=== PATIENT | male | born 1995 | race Caucasian/White ===

== ENCOUNTER 2019-08-19 10:50 | Emergency (ER) | payer OTHER ==
[~2019-08-19] VITALS: Ht 172.7 cm; Wt 77.1 kg
--- NOTE | 2019-08-19 10:56 | NUR ---
PT BIB SELF C/O REDNESS AND SWELLING TO R FA SINCE YESTERDAY, PT IS AAOX4, NOT IN RESPIRATORY DISTRESS, HOOKED TO MONITOR, KEPT RESTED AND COMFORTABLE, WILL CONTINUE TO MONITOR.
--- NOTE | 2019-08-19 11:12 | NUR ---
AT BEDSIDE FOR EVAL.
--- NOTE | 2019-08-19 11:35 | NUR ---
IV LINE ESTABLISHED, BLOOD DRAWN AND SENT TO LAB.
[2019-08-19 11:36] LABS: BASOPHILS % (AUTO) 0.4 % (0.0-2.0); EOSINOPHILS % (AUTO) 0.5 % (0.0-6.0); HEMATOCRIT 35 % (39-51); LYMPHOCYTES # (AUTO) 0.8 /CMM (0.8-4.8); LYMPHOCYTES % (AUTO) 10.5 % (20.0-44.0); MEAN CORPUSCULAR HGB CONC 34 g/dl (31.0-36.0); MEAN CORPUSCULAR VOLUME 90 fL (80-96); MONOCYTES # (AUTO) 0.6 /CMM (0.1-1.30); MONOCYTES % (AUTO) 8.2 % (2.0-12.0); NEUTROPHILS # (AUTO) 5.8 /CMM (1.8-8.9); NEUTROPHILS % (AUTO) 80.4 % (43.0-81.0); PLATELET COUNT (AUTO) 218 /CMM (150-450); RED BLOOD CELL COUNT(AUTO) 3.94 MIL/uL (4.5-6.0); WHITE BLOOD COUNT (AUTO) 7.2 K/uL (4.3-11.0)
--- NOTE | 2019-08-19 11:38 | NUR ---
CALLED PHARMACY FOR PT ANTIBIOTIC.
[2019-08-19 11:43] LABS: CALCIUM, SERUM 8.7 mg/dL (8.5-10.1); CREATININE 0.9 mg/dL (0.6-1.3); POTASSIUM 4.6 mmol/L (3.5-5.1)
[2019-08-19] MEDS: VANCOMYCIN HCL 1 GM in IV D5W 260 ML IV ONE (11:47)
[2019-08-19 13:54] VITALS: BP 122/77
--- NOTE | 2019-08-19 13:56 | NUR ---
Patient discharged to home in stable condition. Written and verbal after care instructions given. Patient verbalizes understanding of instruction. IV removed. Catheter intact and site benign. Pressure and 4x4 applied to site. No bleeding noted.
== END 2019-08-19 13:57 | disposition home or self-care (01) ==
LOC: ER 10:58
DX: L03.113 Cellulitis of right upper limb (principal); F19.10 Other psychoactive substance abuse, uncomplicated; Z88.1 Allergy status to other antibiotic agents
CPT/HCPCS: 36415; 76536; 80048; 85025; 87040 ×2; 96365; 96366; 99284; J7060

== ENCOUNTER 2019-08-22 14:44 | Inpatient (IN) | payer OTHER ==
[~2019-08-22] VITALS: Ht 172.7 cm; Wt 76.8 kg
--- NOTE | 2019-08-22 15:00 | NUR ---
patient came in to the er c/o r arm pain, re-check cellulitis. On room air, breathing evenly and unlabored. connected to the monitor and pulse ox. Kept comfortable, will continue to monitor accordingly.
[2019-08-22] MEDS ORDERED: VANCOMYCIN 1 GM in IV D5W 250 ML IV ONE (15:30)
[2019-08-22] MEDS ORDERED: AZTREONAM 1 G in IV NS 0.9% 100 ML IV ONE (15:30)
[2019-08-22] MEDS ORDERED: CLINDAMYCIN 900 MG in IV D5W 50 ML IV ONE (15:30)
[2019-08-22] MEDS ORDERED: HYDROCODONE/APAP 5/325MG 1 EACH TABLET PO ONE (15:30)
[2019-08-22] MEDS ORDERED: IV NS 0.9% 1,000 ML BAG IV ONE (15:30)
[2019-08-22] MEDS ORDERED: HYDROCODONE/APAP 5/325MG 1 EACH TABLET ONE (15:41)
[2019-08-22 15:45] LABS: BASOPHILS % (AUTO) 0.5 % (0.0-2.0); EOSINOPHILS % (AUTO) 1.6 % (0.0-6.0); HEMATOCRIT 36 % (39-51); HEMOGLOBIN 12.1 g/dL (13.5-17.5); LYMPHOCYTES # (AUTO) 1.2 /CMM (0.8-4.8); LYMPHOCYTES % (AUTO) 13.5 % (20.0-44.0); MEAN CORPUSCULAR HGB CONC 34 g/dl (31.0-36.0); MEAN CORPUSCULAR VOLUME 90 fL (80-96); MONOCYTES # (AUTO) 0.7 /CMM (0.1-1.30); MONOCYTES % (AUTO) 7.7 % (2.0-12.0); NEUTROPHILS # (AUTO) 6.8 /CMM (1.8-8.9); NEUTROPHILS % (AUTO) 76.7 % (43.0-81.0); PLATELET COUNT (AUTO) 322 /CMM (150-450); WHITE BLOOD COUNT (AUTO) 8.8 K/uL (4.3-11.0)
[2019-08-22 15:55] LABS: CALCIUM, SERUM 9.3 mg/dL (8.5-10.1); CARBON DIOXIDE 27 mmol/L (21-32); CHLORIDE 99 mmol/L (98-107); GLUCOSE 86 mg/dL (74-106); POTASSIUM 4.5 mmol/L (3.5-5.1); SODIUM SERUM 135 mmol/L (136-145); UREA NITROGEN, BLOOD 14 mg/dL (7-18)
[2019-08-22] MEDS ORDERED: CEPH500C2 PO (16:05)
[2019-08-22] MEDS ORDERED: SULF1TAB48 PO (16:05)
[2019-08-22 16:10] LABS: ALANINE AMINOTRANSFERASE 9 U/L (12-78); ALBUMIN 2.8 g/dL (3.4-5.0); ALKALINE PHOSPHATASE 72 U/L (46-116); ASPARTATE AMINOTRANSFERASE 14 U/L (15-37); BILIRUBIN,DIRECT 0.1 mg/dL (0.0-0.2); BILIRUBIN,TOTAL 0.3 mg/dL (0.2-1.0); TOTAL PROTEIN, SERUM 8.6 g/dL (6.4-8.2)
--- NOTE | 2019-08-22 16:43 | NUR ---
[id number] [facility]
[2019-08-22] MEDS ORDERED: MORPHINE SULFATE INJ 2 MG/ML DISP.SYRIN IV ONE (17:00)
[2019-08-22] MEDS ORDERED: MORPHINE SULFATE INJ 4 MG/ML DISP.SYRIN ONE (17:04)
[2019-08-22] MEDS ORDERED: MORPHINE SULFATE INJ 2 MG/ML DISP.SYRIN ONE (17:04)
--- NOTE | 2019-08-22 18:17 | NUR ---
wheeled patient via wheelchair in no distress. RN at bedside to assume care.
--- NOTE | 2019-08-22 18:20 | NUR ---
M/S ELECTRONIC PAGINATION SYSTEM OPERATOR NOTES RECEIVED PT VIA W/C FROM ER, A/OX4, RESPONSIVE TO ALL STIMULI, TURKMEN SPEAKING ONLY. RESPIRATION EVEN AND NON LABORED WITH NO ACUTE RESPIRATORY DISTRESS, LUNGS CLEARED BILATERALLY. ABDOMEN SOFT AND DISTENDED WITH ACTIVE BOWEL SOUNDS. SKIN WARM TO TOUCH AND DRY. PAIN AT 6/10 ON RIGHT ARM, PAGED HOSPITALIST MARILEE YUSUF REGARDING THE COMPLAIN. WILL SEE THE PATIENT. RIGHT AC #18 PATENT IN FLUSHING, NO S/SX ON INFILTRATION. CALL LIGHT WITHIN REACH, BED IN LOW LOCKED SIDE RAILS X2 UP. ALL CONCERNS ATTENDED AT THIS TIME. WILL CONTINUE TO EVALUATE CARE.
[2019-08-22] MEDS ORDERED: CLINDAMYCIN IV RTU IN D5W 900 MG/50 ML PIGGYBACK IV SCH (18:30)
--- NOTE | 2019-08-22 18:50 | NUR ---
M/S RN NOTES PT SEEN AND EVALUATED BY CARMEN HUNT.
[2019-08-22] MEDS ORDERED: ACETAMINOPHEN 325 MG TABLET PO PRN (19:00)
[2019-08-22] MEDS ORDERED: Z GUARD REMEDY 2 OZ OINT TP PRN (19:00)
[2019-08-22] MEDS ORDERED: ZOLPIDEM TARTRATE 5 MG TABLET PO PRN (19:00)
[2019-08-22] MEDS ORDERED: MAGNESIUM HYDROXIDE 30 ML UDC PO PRN (19:00)
[2019-08-22] MEDS ORDERED: ONDANSETRON HCL/PF 4 MG/2 ML VIAL IVP PRN (19:00)
[2019-08-22] MEDS ORDERED: MORPHINE SULFATE INJ 2 MG/ML DISP.SYRIN IV PRN (19:00)
--- NOTE | 2019-08-22 19:15 | NUR ---
RN PM OPENING NOTE BEDSIDE REPORT FROM LAURA GARCIA. ALERT AND ORIENTED X4. RESPIRATION EVEN AND NON LABORED WITH NO APPARENT RESPIRATORY DISTRESS, LUNGS CLEAR BILATERALLY. SKIN WARM TO TOUCH AND DRY. C/O PAIN AT 7/10 ON RIGHT ARM, RIGHT AC #18 PATENT FLUSHIED, NO S/SX ON INFILTRATION HEPLOCKED. CALL LIGHT WITHIN REACH, BED IN LOW LOCKED SIDE RAILS X2 UP. ADMISSION ASSESSMENT TO BE PERFORMED. PATIENT VERBALIZED UNDERSTANDING TO CALL FOR ASSISTANCE NEEDED
--- NOTE | 2019-08-22 19:21 | NUR ---
M/S WINE MANAGER NOTES ENDORSED PT CARE TO NEXT NURSE. PT IN STABLE CONDITION AT THIS TIME. CALL LIGHT WITHIN REACH. CONCERNS ATTENDED.
[2019-08-22 20:00] VITALS: BP 125/61
[2019-08-22] MEDS: NICOTINE PATCH (14MG) 14 MG PATCH.TD24 TD SCH (21:14)
[2019-08-22] MEDS: CLINDAMYCIN 900 MG in IV D5W 50 ML IV SCH (23:07)
[2019-08-22] MEDS: KETOROLAC TROMETHAMINE INJ 30 MG/ML VIAL IM PRN (23:08)
[2019-08-23] MEDS: KETOROLAC TROMETHAMINE INJ 30 MG/ML VIAL IM PRN ×2 (06:24→18:28)
[2019-08-23 06:50] LABS: BASOPHILS % (AUTO) 0.4 % (0.0-2.0); EOSINOPHILS % (AUTO) 2.7 % (0.0-6.0); HEMATOCRIT 37 % (39-51); HEMOGLOBIN 12.4 g/dL (13.5-17.5); LYMPHOCYTES # (AUTO) 1.2 /CMM (0.8-4.8); LYMPHOCYTES % (AUTO) 18.8 % (20.0-44.0); MEAN CORPUSCULAR HGB CONC 34 g/dl (31.0-36.0); MEAN CORPUSCULAR VOLUME 90 fL (80-96); MONOCYTES # (AUTO) 0.5 /CMM (0.1-1.30); MONOCYTES % (AUTO) 8.4 % (2.0-12.0); NEUTROPHILS # (AUTO) 4.5 /CMM (1.8-8.9); NEUTROPHILS % (AUTO) 69.7 % (43.0-81.0); PLATELET COUNT (AUTO) 267 /CMM (150-450); RED BLOOD CELL COUNT(AUTO) 4.09 MIL/uL (4.5-6.0); WHITE BLOOD COUNT (AUTO) 6.5 K/uL (4.3-11.0)
[2019-08-23 07:10] LABS: MAGNESIUM 1.9 mg/dL (1.8-2.4); PHOSPHORUS 4.2 mg/dL (2.5-4.9); POTASSIUM 4.3 mmol/L (3.5-5.1)
--- NOTE | 2019-08-23 07:36 | NUR ---
MS RN OPENING NOTES RECEIVED PATIENT ASLEEP IN BED, EASILY AROUSABLE. A/O X4, NO C/O PAIN AT THIS TIME. ON ROOM AIR, BREATHING EVEN AND UNLABORED. IV ACCESS ON LAC G#18 INTACT AND PATENT, IVF OF NS @ 75ML/HR INFUSING, NO S/S OF INFILTRATIONS NOTED. SAFETY MEASURES IN PLACE: BED IN LOWEST LOCKED POSITION WITH SR UP X2. CALL LIGHT WITHIN REACH. WILL CONTINUE TO MONITOR.
--- NOTE | 2019-08-23 07:40 | NUR ---
MS RN CLOSING NOTE PT IN BED, EASILY AROUSABLE TO VOICE. A/O X4, RECENTLY MEDICATED WITH TORADOL FOR PAIN RELIEF. REPORTING PAIN AT 2/10 TO RIGHT FOREARM. FOREARM BEING ELEVATED ON 2 PILLOWS. IV ACCESS ON LAC G#18 INTACT AND PATENT, IVF OF NS @ 75ML/HR INFUSING, NO S/S OF INFILTRATIONS NOTED. SAFETY MEASURES IN PLACE: BED IN LOWEST LOCKED POSITION WITH SR UP X2. CALL LIGHT WITHIN REACH. PATIETN AMBULATES WITH A STEADY GAIT.
--- NOTE | 2019-08-23 07:41 | NUR ---
WOUND CARE CONSULT: PT PRESENTS WITH RT ARM SWELLING AND REDNESS, PRESENT ON ADMISSION. ARM IS ELEVATED ON PILLOW. WILL SEE PRN.
[2019-08-23] MEDS: CLINDAMYCIN 900 MG in IV D5W 50 ML IV SCH ×2 (08:04→15:47)
[2019-08-23] MEDS: NICOTINE PATCH (14MG) 14 MG PATCH.TD24 TD SCH (09:08)
[2019-08-23] MEDS: HYDROCODONE/APAP 5/325MG 1 EACH TABLET PO PRN ×2 (11:34→18:28)
--- NOTE | 2019-08-23 11:35 | NUR ---
RN NOTES PT C/O BURNING THROBBING PAIN ON RIGHT LOWER ARM WITH SCALE OF 7/10. PRN NORCO 5/325MG PO GIVEN AT 1134
[2019-08-23] MEDS: IV NS 0.9% 1,000 ML IV PRN (11:39)
--- NOTE | 2019-08-23 13:02 | NUR ---
RN NOTES PT SEEN AND EVALUATED BY PARAMJIT HUNT AND INFORMED HER THAT PT HAS SUPERFICIAL CLOT FORMATION W/IN RIGHT CEPHALIC VEIN AND THERE'S NO EVIDENCE OF DVT. PARAMJIT HUNT WITH ORDER TO KEEP RIGHT ARM ELEVATED WITH PILLOW/S AND APPLY WARM COMPRESS. WILL CARRY OUT ORDER AND CONTINUE TO MONITOR PT.
[2019-08-23] MEDS: MORPHINE SULFATE INJ 2 MG/ML DISP.SYRIN IV PRN ×2 (15:44→20:23)
--- NOTE | 2019-08-23 15:50 | NUR ---
RN NOTES PT COMPLAINED OF RIGHT ARM PAIN, PT REFUSED TO HAVE NORCO OR TORADOL, INFORMED PARAMJIT HUNT WITH ORDER TO GIVE MORPHINE 2MG IV Q4HRS PRN. MORPHINE 2MG IVP ADMINISTERED AT 1543. WILL CONTINUE TO MONITOR AND REASSESS PT.
[2019-08-23 16:15] VITALS: BP 126/68
--- NOTE | 2019-08-23 18:49 | NUR ---
MS RN CLOSING NOTES PATIENT IN BED AWAKE AND WATCHING TV AT THIS TIME. A/O X4. ABLE TO MAKE NEEDS KNOWN. REMAINS WITH REDNESS AND SWELLING ON RIGHT ARM, KEEP ELEVATED WITH PILLOW/S. ON ROOM AIR, TOLERATING WELL WITH NO SOB NOTED . IV ACCESS ON LAC G#18 INTACT AND PATENT, IVF OF NS @ 75ML/HR INFUSING WELL, NO S/S OF INFILTRATIONS NOTED. SAFETY MEASURES IN PLACE: BED IN LOWEST LOCKED POSITION WITH SR UP X2. CALL LIGHT WITHIN REACH. ALL NEEDS AND CARE ATTENDED WELL. WILL ENDORSE TO WEBBING TACKER NURSE FOR CARLY.
[2019-08-23 20:11] VITALS: BP 123/67
--- NOTE | 2019-08-23 20:11 | NUR ---
dr. moreira ordered k pads to apply to left arm. called [facility] [employer] no working kpads are available but they are going to follow up in am if they can get a working unit.
[2019-08-24] MEDS: IV NS 0.9% 1,000 ML IV PRN (00:10)
[2019-08-24] MEDS: CLINDAMYCIN 900 MG in IV D5W 50 ML IV SCH ×3 (00:11→17:00)
[2019-08-24] MEDS: KETOROLAC TROMETHAMINE INJ 30 MG/ML VIAL IM PRN ×3 (01:54→20:19)
[2019-08-24] MEDS: MORPHINE SULFATE INJ 2 MG/ML DISP.SYRIN IV PRN ×5 (01:55→21:17)
--- NOTE | 2019-08-24 07:23 | NUR ---
MS RN PM CLOSING NOTES PATIENT SEEN WITH EYES CLOSE IN NO APPARENT DISTRESS.ABLE TO MAKE NEEDS KNOWN PATIENT IS AMBULATORY. REMAINS WITH REDNESS AND SWELLING ON RIGHT ARM, KEEP ELEVATED WITH 2PILLOWS THROUGHOUT THE NIGHT. WARM COMPRESSES ATTEMPTED X2 BUT PATIENT REPORTS THEY WERE UNSATISFACTORY. WET TOWES GOT TOO COLD WITH TAP WATER. PT ON ROOM AIR, TOLERATING WELL WITH NO SOB, BREATHING EVEN AND UNLABORED. IV ACCESS ON LAC G#18 INTACT AND PATENT, IVF OF NS @ 75ML/HR INFUSING WELL, NO S/S OF INFILTRATIONS NOTED. SAFETY MEASURES IN PLACE: BED IN LOWEST LOCKED POSITION WITH SR UP X2. CALL LIGHT WITHIN REACH. ALL NEEDS AND CARE ATTENDED WELL. WILL ENDORSE TO DAY SHIFT NURSE FOR CARLY.
[2019-08-24 08:00] VITALS: BP 128/58
--- NOTE | 2019-08-24 08:00 | NUR ---
RN MS NOTES PT AWAKE, ALERT AND ORIENTED, ABLE TO AMBULATE TO THE BATHROOM, PT ASKING WHEN IS HIS PAIN MEDS DUE FOR RIGHT ARM PAIN, BREAKFAST SERVED, NEEDS ATTENDED.
[2019-08-24] MEDS: NICOTINE PATCH (14MG) 14 MG PATCH.TD24 TD SCH (08:54)
--- NOTE | 2019-08-24 12:48 | NUR ---
RN MS NOTES\ PT SEEN AND EXAMINED BY DR. FONTANA, PLAN OF CARE DISCUSSED WITH PT, VERBALIZED UNDERSTANDING.
[2019-08-24 16:00] VITALS: BP 112/54
[2019-08-24] MEDS ORDERED: IOHEXOL-300 100 ML VIAL IV ONE (17:39)
[2019-08-24] MEDS ORDERED: CT SWABBABLE VALVE TRANS SET 1 EA INFUS.SET MC ONE (17:39)
[2019-08-24] MEDS ORDERED: IV NS 0.9% 250 ML IV ONE (17:39)
--- NOTE | 2019-08-24 19:00 | NUR ---
RN MS NOTES PT IN BED, AWAKE, ALERT AND ORIENTED, RESPIRATIONS NORMAL, PAIN MEDS GIVEN ORDERED, IV FLUIDS INFUSING WELL, SEEN BY DR. FONTANA, ORDERED CT SCAN OF THE RIGHT ARM, AMBULATES TO THE BATHROOM WITH STEADY GAIT, ALL NEEDS ATTENDED.
--- NOTE | 2019-08-24 19:20 | NUR ---
MS RN OPENING NOTES: RECEIVED PT ON ROOM AIR AND IS TOLERATING WELL. NO SOB NOTED. NO S/S OF DISTRESS. PT HAS IV ON L AC #18G AND IS BEING INFUSED WITH IV NS AT 75ML/HR. R FOREARM ELEVATED WITH PILLOW AT THIS TIME AND IS ENCOURAGED. PT APPEARS TO BE IN DISCOMFORT AND IS ALREADY ASKING FOR HIS NEXT PAIN MEDICATIONS. BED KEPT IN LOW, LOCKED POSITION, AND SIDE RAILS X 2UP. CALL LIGHT WITHIN REACH. WILL CONTINUE TO MONITOR PT.
--- NOTE | 2019-08-24 20:23 | NUR ---
MS RN NOTES: PT COMPLAINING OF RIGHT FOREARM THROBBING PAIN. PT WAS ADMINISTERED TORADOL 15MG IM ON RIGHT DELTOID. WILL CONTINUE TO MONITOR.
[2019-08-24 20:49] VITALS: BP 107/65
[2019-08-24 21:15] VITALS: BP 120/70
--- NOTE | 2019-08-24 21:21 | NUR ---
MS RN NOTES: PT STILL COMPLAINING AFTER USING THE BATHROOM THAT HIS R FOREARM IS IN PAIN 01/06. PT WAS ADMINISTERED MORPHINE 2 MG IV. WILL CONTINUE TO MONITOR.
[2019-08-25] MEDS: CLINDAMYCIN 900 MG in IV D5W 50 ML IV SCH ×2 (00:13→07:47)
[2019-08-25] MEDS: IV NS 0.9% 1,000 ML IV PRN (00:43)
[2019-08-25] MEDS: MORPHINE SULFATE INJ 2 MG/ML DISP.SYRIN IV PRN ×3 (01:26→12:54)
--- NOTE | 2019-08-25 01:30 | NUR ---
MS RN NOTES: PT STILL COMPLAINING OF R FOREARM 7/10 THROBBING PAIN. PT WAS ADMINISTERED MORPHINE 2MG IV. WILL CONTINUE TO MONITOR.
--- NOTE | 2019-08-25 05:46 | NUR ---
MS RN NOTES: PT REFUSING BLOOD DRAW AT THIS TIME. WOULD LIKE TO GET SOME MORE SLEEP FOR NOW. FROG SHAKER TO COME BACK AT A LATER TIME.
--- NOTE | 2019-08-25 07:30 | NUR ---
RN MS NOTES PT IN BED, AWAKE, ALERT AND ORIENTED, EATING BREAKFAST, ASKING WHEN CAN HE HAVE THE NEXT PAIN MEDICATION, RESPIRATIONS NORMAL, CALL LIGHT WITHIN REACH, IV FLUIDS INFUSING WELL, NEEDS ATTENDED.
[2019-08-25 08:00] VITALS: BP 119/72
[2019-08-25] MEDS: NICOTINE PATCH (14MG) 14 MG PATCH.TD24 TD SCH (08:05)
[2019-08-25] MEDS: KETOROLAC TROMETHAMINE INJ 30 MG/ML VIAL IM PRN (10:14)
[2019-08-25] MEDS ORDERED: CLIN300C11 PO (11:02)
--- NOTE | 2019-08-25 13:14 | NUR ---
RN MS NOTES PT ALERT AWAKE AND ORIENTED, AMBULATES WITH STEADY GAIT, INDEPENDENT WITH ADL'S, TOLERATES CURRENT DIET, PAIN MEDS GIVEN ORDERED, RESPIRATIONS NORMAL, SEEN BY DR. FONTANA, DISCHARGE ORDER GIVEN, DISCHARGE AND MEDICATION INSTRUCTIONS PROVIDED TO PT. VERBALIZED UNDERSTANDING, BELONGINGS ACCOUNTED FOR, PHOTOS TAKEN, PICKED UP BY MR PATRICE SPANGLER OF [facility], LEFT IN STABLE CONDITION.
== END 2019-08-25 12:30 | DRG 603 ==
LOC: ER 14:45 → MEDSG2 16:54
PROVIDERS: ADMIT Nurse Practitioner Acute Care; ATTEND Nurse Practitioner Acute Care
DX: L03.113 Cellulitis of right upper limb (principal); E87.1 Hypo-osmolality and hyponatremia; I82.611 Acute embolism and thrombosis of superficial veins of right upper extremity; E44.0 Moderate protein-calorie malnutrition; D63.8 Anemia in other chronic diseases classified elsewhere; Z88.1 Allergy status to other antibiotic agents; E86.1 Hypovolemia; Z72.0 Tobacco use
CPT/HCPCS: 36415; 73090-TC; 73201-TC; 80048-TC; 80061-TC; 80076-TC; 80305; 83605-TC; 83735-TC; 84100-TC; 84484-TC; 85025-TC; 85730-TC; 86140-TC; 87040-TC; 87081-TC; 93971-TC; G0378; J1885; J2270; J3370; J3490; J7030; J7050; J7060; Q9967